=== PATIENT | male | born 1955 | race Caucasian/White ===

== ENCOUNTER → 2018-05-21 | Outpatient (CLI) | payer SELFPAY ==
--- NOTE | 2018-05-21 12:54 | KCIC ---
PQRS Compliance Statement: One or more of the following individualized dose reduction techniques were utilized for this examination: 1. Automated exposure control 2. Adjustment of the mA and/or kV according to patient size 3. Use of iterative reconstruction technique Coronary calcium score CT chest without contrast History: 62-year-old male with dyspnea on exertion, family history of heart disease, slightly elevated cholesterol and distant history of tobacco use. Denies hypertension. Technique: With retrospective electrocardiogram gating axial reconstructed noncontrast images of the chest at the level of the coronary arteries was performed. Images were post processed on workstation and calcium score calculated using the modified Agatston Janowitz protocol. Findings: Total coronary calcium score is 41.2. This is a mild plaque burden and low cardiovascular disease risk. This is based on the calcium score of 0 of the left main coronary artery, 18.7 of the left anterior descending artery, score of 9.6 of the left circumflex artery and score of 12.9 of the right coronary artery. Noncoronary findings demonstrate several subcentimeter mediastinal lymph nodes. Cardiac size normal, no pericardial effusion. There are multiple subcentimeter hypodensities in the liver. The central airways are patent. There is a 7 x 6 mm nodule in the right middle lobe that is probably along the minor fissure and may be an intrapulmonary lymph node, image 25. There is minimal dependent atelectasis in the right lower lobe. There is a 7 x 5 mm nodule in the left lower lobe with a pleural tag, image 45. IMPRESSION: 1. Patient's total calcium score is 41.2. 2. There are 2 about 6 mm in size noncalcified pulmonary nodules. Recommend noncontrast CT chest in 6-12 months per Fleischner Society guidelines. 3. There are multiple subcentimeter hypodensities in the liver. Recommend further evaluation with MR abdomen with and without contrast. Electronically signed by: Connor Manzo MD (05/21/2018 12:51 PM) [id number]
== END | disposition home or self-care (01) ==
LOC: KCIC CT 07:35
PROVIDERS: ATTEND Internal Medicine Cardiovascular Disease
DX: Z13.6 Encounter for screening for cardiovascular disorders (principal); E78.5 Hyperlipidemia, unspecified; J98.11 Atelectasis; R91.8 Other nonspecific abnormal finding of lung field; Z72.0 Tobacco use; Z82.49 Family history of ischemic heart disease and other diseases of the circulatory system
CPT/HCPCS: 75571

== ENCOUNTER → 2019-05-26 | Outpatient (CLI) | payer BC ==
[~2019-05-26] MED LIST: GADOTERATE 7.5 MMOL/15ML VIAL. IVP ONE
--- NOTE | 2019-05-26 10:22 | KCIC ---
CT CHEST WO CONTRAST Indication: Lung nodules on CT calcium score Technique: Noncontrast CT imaging was performed of the chest, multiplanar reconstruction images submitted. One or more of the following individualized dose reduction techniques were utilized for this examination: 1. Automated exposure control 2. Adjustment of the mA and/or kV according to patient size 3. Use of iterative reconstruction technique. Comparison: May 21, 2018 Findings: A 0.6 cm left lower lobe nodule image 145 series 3 is stable. Not included previously, there is groundglass nodule left lower lobe 1.1 cm image 166 series 3. 0.4 cm superior left lower lobe nodule image 68 series 3 is new. 0.2 cm nodule along the left major fissure image 79 series 3 is similar. 0.2 cm left upper lobe nodule image 78 is stable. There is 0.4 cm subpleural right upper lobe nodule image 25 series 3, this area not included previously. There is another subpleural right upper lobe nodule posteriorly about 0.3 cm image 33, not included previously. 0.3 cm subpleural right upper lobe nodule image 58 is similar. Major airways are patent. There is no pleural or pericardial fluid, lobar infiltrate, or pneumothorax. Not fully evaluated, there are again multiple small hypodense foci of the visualized liver parenchyma, largest which have density characteristics which are more cystlike, largest of the left lobe of liver about 0.7 cm. There is some coronary calcification. No significantly enlarged nodes are identified of the chest. IMPRESSION: 1. There are bilateral pulmonary nodules as stated, some areas not included previously and a new small nodule of the superior left lower lobe. 3-6 month follow-up is recommended as per revised Fleischner guidelines given the dominant nodule of the left lower lobe and the new small left lower lobe nodule. 2. There is some coronary calcification. 3. There are again multiple small hypodense foci of the liver. Electronically signed by: Jeffery Williamson MD (05/26/2019 10:19 AM) [id number]
--- NOTE | 2019-05-26 16:20 | KCIC ---
EXAM: MRI ABDOMEN WITH AND WITHOUT CONTRAST. HISTORY: Hepatitis C, liver lesions. TECHNIQUE: MRI of the abdomen was performed before and after the intravenous administration of 14 mL Dotarem. COMPARISON: 05/21/2018. FINDINGS: Liver: Hepatic parenchymal signal loss on opposed phase images indicates mild diffuse hepatic steatosis. Many subcentimeter T2 hyperintense nonenhancing lesions scattered throughout the liver are consistent with polycystic liver disease or von Meyenberg complex, benign findings. There are no suspicious hepatic lesions. Biliary tree: The gallbladder is unremarkable. The common duct is not dilated. There are no suspicious pancreatic parenchymal lesions. The pancreatic duct is not dilated. Other findings: There are only a few small cysts within the kidneys measuring up to 1.4 cm on the left. There are no suspicious renal lesions. No pancreatic cystic disease is identified. The adrenal glands and spleen are unremarkable. A prominent gastrohepatic lymph node measures 1.3 x 0.8 cm. IMPRESSION: 1. Many subcentimeter cysts may reflect polycystic liver disease or von Meyenberg complex, benign findings. There are no suspicious hepatic lesions. 2. A prominent gastrohepatic lymph node may reflect hepatic inflammation. Correlate with other data. Electronically signed by: Maximilian Borjas MD (05/26/2019 4:17 PM) [facility]
== END | disposition home or self-care (01) ==
LOC: KCIC MRI 08:13
PROVIDERS: ATTEND Family Medicine
DX: K76.0 Fatty (change of) liver, not elsewhere classified (principal); N28.1 Cyst of kidney, acquired; R91.8 Other nonspecific abnormal finding of lung field; I25.10 Atherosclerotic heart disease of native coronary artery without angina pectoris; B18.2 Chronic viral hepatitis C
CPT/HCPCS: 71250; 74183; A9575

== ENCOUNTER → 2020-03-31 | Outpatient (CLI) | payer BC ==
--- NOTE | 2020-03-31 12:07 | KCIC ---
CT CHEST WO CONTRAST Indication: Lung nodule follow-up Technique: Noncontrast CT imaging was performed of the chest, multiplanar reconstruction images submitted. One or more of the following individualized dose reduction techniques were utilized for this examination: 1. Automated exposure control 2. Adjustment of the mA and/or kV according to patient size 3. Use of iterative reconstruction technique. Comparison: May 26, 2019 Findings: 0.6 cm left lower lobe nodule image 39 series 2 is stable. Tiny 0.2 cm left lower lobe nodule image 42 series 2 is stable. 0.2 cm left upper lobe nodule image 23 series 2 is stable. Subsolid, 0.4 cm, subpleural right lower lobe nodule image 31 series 2 is unchanged. 0.5 cm right middle lobe nodule image 35 series 2 is unchanged. There is no new suspicious pulmonary nodularity. There is no new infiltrate, pleural or pericardial fluid, or pneumothorax. No new significant chest lymphadenopathy is identified. There is again some coronary calcification. There are again multiple tiny hypodense foci of the liver otherwise difficult to accurately characterize given small size, grossly unchanged. There is mild superior thoracic dextroscoliosis. IMPRESSION: 1. Pulmonary nodules are unchanged, no new suspicious pulmonary nodularity. 18-24 month follow-up is recommended as per revised Fleischner guidelines. 2. There are again multiple small hypodense foci of the liver, too small to further accurately characterize. Electronically signed by: Jeffery Williamson MD (03/31/2020 12:04 PM) [id number]
== END ==
LOC: KCIC CT 07:57
PROVIDERS: ATTEND Family Medicine
DX: R91.1 Solitary pulmonary nodule (principal); I25.10 Atherosclerotic heart disease of native coronary artery without angina pectoris; M41.84 Other forms of scoliosis, thoracic region
CPT/HCPCS: 71250

== ENCOUNTER → 2021-08-31 | Outpatient (CLI) | payer BC ==
[~2021-08-31] MED LIST changes: +ATOR10TA60 PO
--- NOTE | 2021-08-31 11:17 | KCIC ---
MRI BRAIN WO+W, MRA BRAIN WO History:Reason: RECURRENT VERTIGO X 3 WEEKS, WORSENING IMBALANCE/GAIT CHANGE / Spl. Instructions: FAM NORBERTO HX INTRACRANIAL ANEURYSM IN MOTHER / History: 14cc Clariscan VERTIGO FOR MANY YEARS Technique: Multiplanar multisequence MRI of the brain without and with intravenous contrast. 3-D time -of-flight MR angiography was performed of the brain. 3-D reconstructions were performed. Determination of any degree of stenosis is based on NASCET criteria. Comparison: MRI May 16, 2016. Findings: MRI brain: No acute infarct. No intracranial hemorrhage. No mass effect. No hydrocephalus. No pathologic enhanc ement. Mild brain parenchymal volume loss. Mild foci of FLAIR hyperintensities within the hemispheric white matter, most often due to chronic microvascular ischemia. No pathologic mass or enhancement within the internal auditory canals or cerebellopontine angles. Nor mal course of the trigeminal nerves. Symmetric bilateral semicircular canals and cochlea. Imaged orbits are unremarkable. Imaged paranasal sinuses and mastoid air cells are clear. MRA head: Internal carotid arteries: Mild atheroma spine within the carotid siphons. 2 mm right supraclinoid po sterior communicating artery origin aneurysm or poorly characterize infundibulum. No occlusion. Middle cerebral arteries: No stenosis, occlusion or aneurysm. Anterior cerebral arteries: No stenosis, occlusion or aneurysm. Posterior cerebral arteries: No stenosis, occlusion or aneurysm. Basilar artery: No stenosis, occlusion or aneurysm. Vertebral arteries: No stenosis, occlusion or aneurysm. Impression: MRI brain: 1. No acute intracranial abnormality. 2. Mild nonspecific white matter changes, most often due to chronic microvascular ischemia. Progress ed compared to prior. MRA head: 1. 2 mm right internal carotid artery supraclinoid posterior communicating artery origin aneurysm or infundibulum. Electronically signed by: Rohan Sheffield DO (08/31/2021 11:15 AM) [id number]
== END ==
LOC: KCIC MRI 08:00
PROVIDERS: ATTEND Family Medicine
DX: I67.1 Cerebral aneurysm, nonruptured (principal); R90.82 White matter disease, unspecified; R42 Dizziness and giddiness
CPT/HCPCS: 70544; 70553; 82565; A9575